=== PATIENT | female | born 1980 | race Hispanic/Latino ===

== ENCOUNTER 2023-08-10 19:49 | Emergency (ER) | payer BC, OTHER ==
[2023-08-10] MEDS ORDERED: Lidocaine/Transparent Dressing 1 EACH KIT ONE (20:14)
[2023-08-10] MEDS ORDERED: Ketorolac Tromethamine 30 MG (1 mL) VIAL ONE (20:14)
== END 2023-08-10 20:15 | disposition home or self-care (01) ==
LOC: CSHERS 19:49
DX: S39.012A Strain of muscle, fascia and tendon of lower back, initial encounter (principal); I10 Essential (primary) hypertension; E78.5 Hyperlipidemia, unspecified; E03.9 Hypothyroidism, unspecified; Z79.890 Hormone replacement therapy; Z79.899 Other long term (current) drug therapy; X50.0XXA Overexertion from strenuous movement or load, initial encounter
CPT/HCPCS: 96372; 99283; J1885